=== PATIENT | male | born 1990 | race African-American/Black ===

== ENCOUNTER 2017-03-04 12:17 | Emergency (ER) | payer OTHER ==
[~2017-03-04] VITALS: Ht 188 cm; Wt 81.6 kg
[~2017-03-04 12:17] MED LIST: PENI500T PO; TRAM-48 PO
[2017-03-04] MEDS ORDERED: PENI500T PO (13:55)
[2017-03-04] MEDS ORDERED: HYDR-2758 PO (13:55)
--- NOTE | 2017-03-04 13:56 | PHYS DOC ---
Past Medical History Past Medical History: Asthma Past Surgical History: No Surgical History Alcohol Use: None Drug Use: None Adult General Chief Complaint Chief Complaint: DENTAL PROBLEM HPI HPI 18-year-old male presenting to the emergency department with right dental pain. His been present for more than a week. It is moderate intermittent throbbing and without alleviating factors. Review of systems is negative for tongue swelling stridor shortness of breath neck swelling or fevers. All other review of systems is negative unless otherwise noted in history of present illness. ED course: 18-year-old with dental pain. I recommended referral to a dentist today. Patient given small doses of pain medication and penicillin to go home with. The patient was then discharged home in stable condition to follow up with their primary care physician over the next 2-3 days. They were to return if their symptoms worsened or if they were concerned for any reason. Face-to- face discharge instructions and return precautions were given. Patient's questions were answered to their satisfaction. Patient is comfortable plan. Review of Systems Review of Systems SEE ABOVE. Allergies Allergies Allergies Coded Allergies Type Severity Reaction Last Updated Verified No Known Drug Allergies 05/30/14 No Physical Exam Physical Exam SEE ABOVE Constitutional: Well developed, well nourished, no acute distress, non-toxic appearance. [] HENT: Normocephalic, atraumatic, bilateral external ears normal, oropharynx moist, no oral exudates, nose normal. [] Patient has cavities on the right back teeth. Eyes: PERRLA, EOMI, conjunctiva normal, no discharge. [] Neck: Normal range of motion, no tenderness, supple, no stridor. [] Cardiovascular:Heart rate regular rhythm, no murmur [] Lungs & Thorax: Bilateral breath sounds clear to auscultation [] Abdomen: Bowel sounds normal, soft, no tenderness, no masses, no pulsatile masses. [] Skin: Warm, dry, no erythema, no rash. [] Back: No tenderness, no CVA tenderness. [] Extremities: No tenderness, no cyanosis, no clubbing, ROM intact, no edema. [] Neurologic: Alert and oriented X 3, normal motor function, normal sensory function, no focal deficits noted. [] Psychologic: Affect normal, judgement normal, mood normal. [] Current Patient Data Vital Signs Vital Signs Date Time Temp Pulse Resp B/P (MAP) Pulse Ox O2 Delivery O2 Flow Rate FiO2 03/04/17 12:35 97.5 80 16 100 Room Air 97.5 EKG EKG [] Radiology/Procedures Radiology/Procedures [] Course & Med Decision Making Course & Med Decision Making Pertinent Labs and Imaging studies reviewed. (See chart for details) [] Dragon Disclaimer Dragon Disclaimer This electronic medical record was generated, in whole or in part, using a voice recognition dictation system. Departure Departure Impression: Primary Impression: Dental caries Additional Impression: Dentalgia Disposition: HOME, SELF-CARE Condition: STABLE Referrals: NO PCP (PCP) Patient Instructions: Dental Pain Additional Instructions: Thank you for allowing us to participate in your care today. Followup with your primary care physician in 3 days if your symptoms do not improve. Call your Primary Doctor tomorrow and inform them of your visit today. If you do not have a primary care provider you can ask for a list of our primary care providers. Return to the emergency department you have any new or concerning findings. This should be evaluated by the primary care physician and any necessary consulting services for continued management within a few days after discharge. Return to emergency room if you have any new or concerning symptoms including but not limited to fever, chills, nausea, vomiting, intractable pain, any new rashes, chest pain, shortness of air, uncontrolled bleeding, difficulty breathing, and/or vision loss. You may have been prescribed medication that can change in your level of thinking and ability to operate machinery. These medications include hydrocodone and Ativan. Also, Benadryl has been known to do this as well. Be sure to check with your pharmacist and ask if the medications you've prescribed can affect your level of consciousness. I recommend not operating heavy machinery or driving while on medication such as these. Scripts Penicillin V Potassium (PENICILLIN V POTASSIUM) 500 Mg Tablet 1 TAB PO BID, #20 TAB Prov: LUPE ENCARNACION MD 03/04/17 Hydrocodone Bit/Acetaminophen (HYDROCODONE-APAP 5-325 ) 1 Each Tablet 1 TAB PO PRN Q6HRS Y for PAIN, #6 TAB 0 Refills Be careful as this medication may cause you to be drowsy or tired. Do not drive on this medication. Prov: LUPE ENCARNACION MD 03/04/17 Problem Qualifiers LUPE ENCARNACION MD Mar 04, 2017 13:56
[2017-03-04 14:03] VITALS: BP 128/83
== END 2017-03-04 14:03 | disposition home or self-care (01) ==
LOC: ER 12:17
DX: K02.9 Dental caries, unspecified (principal); K08.89 Other specified disorders of teeth and supporting structures; J45.909 Unspecified asthma, uncomplicated
CPT/HCPCS: 99283

== ENCOUNTER 2017-05-04 13:35 | Emergency (ER) | payer OTHER ==
[~2017-05-04] VITALS: Ht 188 cm; Wt 79.4 kg
[~2017-05-04 13:35] MED LIST changes: +HYDR-2758 PO
[2017-05-04 13:42] VITALS: BP 153/90
[2017-05-04] MEDS ORDERED: TRAM-48 PO (14:18)
[2017-05-04] MEDS ORDERED: AMOX875T PO (14:18)
--- NOTE | 2017-05-04 14:18 | PHYS DOC ---
Past Medical History Past Medical History: Asthma Past Surgical History: No Surgical History Alcohol Use: None Drug Use: None Adult General Chief Complaint Chief Complaint: DENTAL PROBLEM HPI HPI Patient is a 26 year old male who presents with right lower gum dental pain and swelling that began 4 days ago. Patient states he has an appointment with his dentist for extraction on May 12, 2017 in [place]. Review of Systems Review of Systems Constitutional: Denies fever or chills [] HENT: right lower gum dental pain and swelling Musculoskeletal: Denies back pain or joint pain [] Integument: Denies rash or skin lesions [] Neurologic: Denies headache, focal weakness or sensory changes [] Allergies Allergies Allergies Coded Allergies Type Severity Reaction Last Updated Verified No Known Drug Allergies 05/30/14 No Physical Exam Physical Exam Constitutional: Well developed, well nourished, no acute distress, non-toxic appearance. [] HENT: Normocephalic, atraumatic, bilateral external ears normal, oropharynx moist, no oral exudates, nose normal. [] Right exterior lower gum with swelling consistent with dental abscess. Right lower wisdom tooth is decayed and broken, tooth #20 is decayed. Severe dental carriers noted on the right lower teeth Skin: Warm, dry, no erythema, no rash. [] Back: No tenderness, no CVA tenderness. [] Extremities: No tenderness, no cyanosis, no clubbing, ROM intact, no edema. [] Neurologic: Alert and oriented X 3, normal motor function, normal sensory function, no focal deficits noted. [] Psychologic: Affect normal, judgement normal, mood normal. [] Current Patient Data Vital Signs Vital Signs Date Time Temp Pulse Resp B/P (MAP) Pulse Ox O2 Delivery O2 Flow Rate FiO2 05/04/17 13:42 98.3 111 20 98 Room Air 98.3 EKG EKG [] Radiology/Procedures Radiology/Procedures [] Course & Med Decision Making Course & Med Decision Making Pertinent Labs and Imaging studies reviewed. (See chart for details) Patient has dental abscess. Will be discharged with amoxicillin and Ultram. He has an appointment with his dentist on May 12, 2017. Dragon Disclaimer Dragon Disclaimer This electronic medical record was generated, in whole or in part, using a voice recognition dictation system. Departure Departure Impression: Primary Impression: Dentalgia Additional Impressions: Dental abscess Infected dental caries Disposition: HOME, SELF-CARE Condition: STABLE Referrals: NO PCP (PCP) follow up with your doctor next week Patient Instructions: Dental Abscess, Dental Caries Additional Instructions: You were seen for dental abscess. Complete your antibiotics. Follow-up with your dentist as soon as you can Scripts Amoxicillin (AMOXICILLIN) 875 Mg Tablet 1 TAB PO BID, #20 TAB Prov: NANCY AYOUB APRN 05/04/17 Tramadol Hcl (ULTRAM) 50 Mg Tablet 1 TAB PO Q6HRS, #30 TAB Prov: NANCY AYOUB APRN 05/04/17 Problem Qualifiers NANCY AYOUB APRN May 04, 2017 14:18
== END 2017-05-04 14:23 | disposition home or self-care (01) ==
LOC: ER 13:35
DX: K04.7 Periapical abscess without sinus (principal); K02.9 Dental caries, unspecified; J45.909 Unspecified asthma, uncomplicated
CPT/HCPCS: 99283

== ENCOUNTER 2017-05-22 13:13 | Emergency (ER) | payer OTHER ==
[~2017-05-22] VITALS: Ht 188 cm; Wt 77.1 kg
[~2017-05-22 13:13] MED LIST changes: +AMOX875T PO
[2017-05-22 13:19] VITALS: BP 145/87
--- NOTE | 2017-05-22 14:37 | PHYS DOC ---
Past Medical History Past Medical History: Asthma Past Surgical History: No Surgical History Alcohol Use: None Drug Use: None Adult General Chief Complaint Chief Complaint: HIP PAIN HPI HPI Patient is a 26 year old male with no significant medical history who presents with 6 out of 10 right hip pain worse on movement that has been going on for the last 1 month. Patient states he does work for a [employer] company, he states they do a lot of lifting but he has not had any injury. Patient denies any numbness or tingling to bilateral lower extremities. Denies any low back pain. Denies any loss of bowel/bladder function. Denies any pain radiating to bilateral lower extremities. Review of Systems Review of Systems Constitutional: Denies fever or chills [] GI: Denies abdominal pain, nausea, vomiting, bloody stools or diarrhea [] : Denies dysuria or hematuria [] Musculoskeletal: right hip pain Integument: Denies rash or skin lesions [] Neurologic: Denies headache, focal weakness or sensory changes [] Allergies Allergies Allergies Coded Allergies Type Severity Reaction Last Updated Verified No Known Drug Allergies 05/30/14 No Physical Exam Physical Exam Constitutional: Well developed, well nourished, no acute distress, non-toxic appearance. [] Skin: Warm, dry, no erythema, no rash. [] Back: No tenderness, no CVA tenderness. [] Extremities: Right hip with no obvious deformity. No tenderness on palpation of the right hip. Full active as well as passive range of motion to the right lower extremity, adequate internal rotation and external rotation of the right lower extremity. +2 right pedal pulse. Cap refill less than 2 seconds the right lower extremity. Sensation intact to the right lower extremity. Neurologic: Alert and oriented X 3, normal motor function, normal sensory function, no focal deficits noted. [] Psychologic: Affect normal, judgement normal, mood normal. [] Current Patient Data Vital Signs Vital Signs Date Time Temp Pulse Resp B/P (MAP) Pulse Ox O2 Delivery O2 Flow Rate FiO2 05/22/17 13:19 98.5 102 18 96 Room Air 98.5 EKG EKG [] Radiology/Procedures Radiology/Procedures []PROCEDURE: HIP RIGHT 2V WITH PELVIS Pelvis with right hip, 3 views, 05/22/2017: History: Pain after lifting No fracture or dislocation is identified. The hip joints are well-maintained. A small sclerotic focus in the right iliac bone just superior to the acetabulum is most likely a bone island. IMPRESSION: No acute bony hip abnormality is detected. DICTATED and SIGNED BY: ALLY SHULTZ MD DATE: 05/22/17 3549 Course & Med Decision Making Course & Med Decision Making Pertinent Labs and Imaging studies reviewed. (See chart for details) Patient is in the ED with complaints of right hip pain for 1 month with no known injury. Right hip x-rays including pelvic interpreted by radiologist are negative for any acute findings. Patient does a job that requires heavy lifting. Informed patient he should consider taking some time off from heavy lifting for 3 days to see if this helps. Discharge him with ultram and Robaxin. Provided him an orthopedic doctor to follow up with the next 7 days. Ice recommended to the area. Patient states he has an appointment with his doctor on this week. Dragon Disclaimer Dragon Disclaimer This electronic medical record was generated, in whole or in part, using a voice recognition dictation system. Departure Departure Impression: Primary Impression: Strain of right hip Disposition: HOME, SELF-CARE Condition: STABLE Referrals: NO PCP (PCP) LATA HUFF MD follow up in one week Patient Instructions: Muscle Strain, [id number] Additional Instructions: You seen with right hip pain, this unlikely including you straining your right hip with lifting of the kind of work you do. Consider taking 3 days off work to see if this helps. Apply ice to the affected area. Follow-up with the orthopedic doctor we provided in the next 7 days. Scripts Methocarbamol (ROBAXIN) 500 Mg Tablet 1 TAB PO TID, #30 TAB Prov: NANCY AYOUB APRN 05/22/17 Tramadol Hcl (ULTRAM) 50 Mg Tablet 1 TAB PO Q6HRS, #30 TAB Prov: NANCY AYOUB APRN 05/22/17 Problem Qualifiers Primary Impression: Strain of right hip Encounter type: initial encounter Qualified Codes: S76.011A - Strain of muscle, fascia and tendon of right hip, initial encounter NANCY AYOUB APRN May 22, 2017 14:37
[2017-05-22] MEDS ORDERED: TRAM-48 PO (14:41)
[2017-05-22] MEDS ORDERED: METH-37 PO (14:41)
== END 2017-05-22 14:53 | disposition home or self-care (01) ==
LOC: ER 13:13
DX: S76.011A Strain of muscle, fascia and tendon of right hip, initial encounter (principal); J45.909 Unspecified asthma, uncomplicated; X58.XXXA Exposure to other specified factors, initial encounter; Y93.89 Activity, other specified; Y92.89 Other specified places as the place of occurrence of the external cause; Y99.8 Other external cause status
CPT/HCPCS: 73502; 99284

== ENCOUNTER 2017-06-19 19:35 | Emergency (ER) | payer OTHER ==
[~2017-06-19] VITALS: Ht 188 cm; Wt 81.6 kg
[~2017-06-19 19:35] MED LIST changes: +METH-37 PO
[2017-06-19 19:50] VITALS: BP 139/81
[2017-06-19] MEDS ORDERED: AMOX500C PO (20:11)
[2017-06-19] MEDS ORDERED: TRAM50TA PO (20:11)
--- NOTE | 2017-06-19 20:11 | PHYS DOC ---
Past Medical History Past Medical History: Asthma Past Surgical History: No Surgical History Alcohol Use: None Drug Use: None Adult General Chief Complaint Chief Complaint: DENTAL PROBLEM HPI HPI Patient is a 26 year old male presents to the ED complaining of tooth pain x 3 days. States he can feel his wisdom tooth poking and on the right lower side. States he lost his insurance but his mom is making an appointment at the dentist for next week. Requesting antibiotic so it does not get infected. Describes the pain as sharp. Rates the pain as 8 out of 10. Denies difficulty swallowing or chewing, fever, swelling, chest pain, shortness of breath or sore throat. Review of Systems Review of Systems Constitutional: Denies fever or chills [] Eyes: Denies change in visual acuity, redness, or eye pain [] HENT: Denies nasal congestion or sore throat. Complains of tooth pain.[] Respiratory: Denies cough or shortness of breath [] Cardiovascular: No additional information not addressed in HPI [] GI: Denies abdominal pain, nausea, vomiting, bloody stools or diarrhea [] : Denies dysuria or hematuria [] Musculoskeletal: Denies back pain or joint pain [] Integument: Denies rash or skin lesions [] Neurologic: Denies headache, focal weakness or sensory changes [] Endocrine: Denies polyuria or polydipsia [] Allergies Allergies Allergies Coded Allergies Type Severity Reaction Last Updated Verified No Known Drug Allergies 05/30/14 No Physical Exam Physical Exam Constitutional: Well developed, well nourished, no acute distress, non-toxic appearance. [] HENT: Normocephalic, atraumatic, bilateral external ears normal, oropharynx moist, no oral exudates, nose normal. MILD RIGHT LOWER WISDOM TOOTH PUSHING THROUGH WITH MILD ERYTHEMA. NO ABSCESS OR FLUCTUANCE. [] Eyes: PERRLA, EOMI, conjunctiva normal, no discharge. [] Neck: Normal range of motion, no tenderness, supple, no stridor. [] Cardiovascular:Heart rate regular rhythm, no murmur [] Lungs & Thorax: Bilateral breath sounds clear to auscultation [] Abdomen: Bowel sounds normal, soft, no tenderness, no masses, no pulsatile masses. [] Skin: Warm, dry, no erythema, no rash. [] Back: No tenderness, no CVA tenderness. [] Extremities: No tenderness, no cyanosis, no clubbing, ROM intact, no edema. [] Neurologic: Alert and oriented X 3, normal motor function, normal sensory function, no focal deficits noted. [] Psychologic: Affect normal, judgement normal, mood normal. [] Current Patient Data Vital Signs Vital Signs Date Time Temp Pulse Resp B/P (MAP) Pulse Ox O2 Delivery O2 Flow Rate FiO2 06/19/17 19:50 98.0 102 16 98 Room Air 98.0 EKG EKG [] Radiology/Procedures Radiology/Procedures [] Course & Med Decision Making Course & Med Decision Making Pertinent Labs and Imaging studies reviewed. (See chart for details) [] Dragon Disclaimer Dragon Disclaimer This electronic medical record was generated, in whole or in part, using a voice recognition dictation system. Departure Departure Impression: Primary Impression: Dental caries Additional Impression: Dentalgia Disposition: HOME, SELF-CARE Condition: STABLE Referrals: NO PCP (PCP) Patient Instructions: Dental Abscess, Dental Pain Scripts Tramadol Hcl (TRAMADOL HCL) 50 Mg Tablet 1 TAB PO PRN Q6HRS, #10 TAB Prov: SUKI SINGH 06/19/17 Amoxicillin (AMOXICILLIN) 500 Mg Capsule 1 CAP PO TID, #30 CAP Prov: SUKI SINGH 06/19/17 Problem Qualifiers SUKI SINGH Jun 19, 2017 20:11
== END 2017-06-19 20:15 | disposition home or self-care (01) ==
LOC: ER 19:35
DX: K02.9 Dental caries, unspecified (principal); J45.909 Unspecified asthma, uncomplicated
CPT/HCPCS: 99283

== ENCOUNTER 2017-08-16 13:06 | Emergency (ER) | payer SELFPAY ==
[~2017-08-16] VITALS: Ht 188 cm; Wt 79.4 kg
[~2017-08-16 13:06] MED LIST changes: +AMOX500C PO; +TRAM50TA PO
[2017-08-16 13:49] VITALS: BP 129/80
[2017-08-16] MEDS ORDERED: PENI500T PO (14:26)
[2017-08-16] MEDS ORDERED: DICL50TA4 PO (14:26)
--- NOTE | 2017-08-16 14:27 | PHYS DOC ---
Past Medical History Past Medical History: Asthma Past Surgical History: No Surgical History Alcohol Use: None Drug Use: None Adult General Chief Complaint Chief Complaint: TOOTH ACHE OR PAIN HPI HPI Patient is a 26 year old male with no significant medical history who presents today complaining of moderate dental pain to his bilateral lower gums for the last 1 month. Patient denies any fever. Patient denies any trismus. He states he has an appointment with his dentist on August 30 2017 for extraction. Review of Systems Review of Systems Constitutional: Denies fever or chills [] HENT: moderate dental pain to his bilateral lower gums Musculoskeletal: Denies back pain or joint pain [] Integument: Denies rash or skin lesions [] Neurologic: Denies headache, focal weakness or sensory changes [] All other systems were reviewed and found to be within normal limits, except as documented in this note. Allergies Allergies Allergies Coded Allergies Type Severity Reaction Last Updated Verified No Known Drug Allergies 05/30/14 No Physical Exam Physical Exam Constitutional: Well developed, well nourished, no acute distress, non-toxic appearance. [] HENT: Normocephalic, atraumatic, bilateral external ears normal, oropharynx moist, no oral exudates, nose normal. Teeth #31 and 17 are decayed and broken. No gum erythema. Scattered dental carriers on exam Skin: Warm, dry, no erythema, no rash. [] Back: No tenderness, no CVA tenderness. [] Extremities: No tenderness, no cyanosis, no clubbing, ROM intact, no edema. [] Neurologic: Alert and oriented X 3, normal motor function, normal sensory function, no focal deficits noted. [] Psychologic: Affect normal, judgement normal, mood normal. [] Current Patient Data Vital Signs Vital Signs Date Time Temp Pulse Resp B/P (MAP) Pulse Ox O2 Delivery O2 Flow Rate FiO2 08/16/17 13:49 98.2 119 17 98 Room Air 98.2 EKG EKG [] Radiology/Procedures Radiology/Procedures [] Course & Med Decision Making Course & Med Decision Making Pertinent Labs and Imaging studies reviewed. (See chart for details) Patient is in the ED with infected dental caries. He has unfortunately is well known for drug seeking for Ultram in this Ed. Patient will be discharged with penicillin and diclofenac. Follow-up with his dentist as scheduled on August 30, 2017 for extraction. Kirk Disclaimer Kirk Disclaimer This electronic medical record was generated, in whole or in part, using a voice recognition dictation system. Departure Departure Impression: Primary Impression: Dentalgia Additional Impression: Infected dental caries Disposition: HOME, SELF-CARE Condition: STABLE Referrals: NO PCP (PCP) follow up with your doctor 08/30/2017 for extraction Patient Instructions: Dental Caries Additional Instructions: You were seen for chronic dental pain. Please complete your antibiotics. Follow- up with your dentist on August 30, 2017 for extraction. Scripts Penicillin V Potassium (PENICILLIN V POTASSIUM) 500 Mg Tablet 1 TAB PO TID, #30 TAB Prov: NANCY AYOUB APRN 08/16/17 Diclofenac Sodium (DICLOFENAC SODIUM) 50 Mg Tablet. 1 TAB PO BID, #30 TAB 0 Refills Prov: NANCY AYOUB APRN 08/16/17 Problem Qualifiers NANCY AYOUB APRN Aug 16, 2017 14:27
== END 2017-08-16 14:30 | disposition home or self-care (01) ==
LOC: ER 13:06
DX: K04.7 Periapical abscess without sinus (principal); K02.9 Dental caries, unspecified; J45.909 Unspecified asthma, uncomplicated
CPT/HCPCS: 99283

== ENCOUNTER 2017-10-17 14:55 | Emergency (ER) | payer SELFPAY | END 2017-10-17 16:25 | disposition left against medical advice (07) | LOC: ER 16:25 | DX: K08.89 Other specified disorders of teeth and supporting structures (principal); J45.909 Unspecified asthma, uncomplicated | CPT/HCPCS: 99281 ==